=== PATIENT | female | born 1965 | race Caucasian/White ===

== ENCOUNTER 2024-03-24 08:00 | Outpatient (CLI) | payer OTHER, SELFPAY ==
--- NOTE | 2024-03-24 | XRR_ITS ---
PROCEDURE INFORMATION: Exam: XR Right Ankle Exam date and time: 03/24/2024 3:36 PM Age: 58 years old Clinical indication: Pain; Right; Patient HX: Twisted ankle; Additional info: Pain in right lower limb TECHNIQUE: Imaging protocol: Radiologic exam of the right ankle. Views: 3 or more views. COMPARISON: CR XR tibia fibula RT 2V [id number] 03/24/2024 3:35 PM FINDINGS: Bones/joints: There is a slightly displaced oblique fracture involving the distal fibula. Fracture is displaced by 4-5 mm. There is a minimally displaced fracture involving the tip of the medial malleolus. There also appears to be a fracture involving the posterior malleolus of the distal tibia. There is slight anterior subluxation of the distal tibia with respect to the talus. Bony mineralization is normal. Soft tissues: There is circumferential soft tissue swelling. XR/XR ankle RT min 3V* [id number] IMPRESSION: 1. Trimalleolar fracture right ankle. There is slight anterior subluxation of the distal tibia with respect to the talus.
--- NOTE | 2024-03-24 | XRR_ITS ---
PROCEDURE INFORMATION: Exam: XR Right Tibia and Fibula Exam date and time: 03/24/2024 3:35 PM Age: 58 years old Clinical indication: Pain; Lower leg; Right; Additional info: Pain in right lower limb TECHNIQUE: Imaging protocol: Radiologic exam of the right tibia and fibula. Views: 2 views. COMPARISON: No relevant prior studies available. FINDINGS: Bones/joints: There is a trimalleolar fracture involving the right ankle. There is slight anterior subluxation of the distal tibia with respect to the talus. No fractures are otherwise appreciated. Bony mineralization is normal. Soft tissues: There is soft tissue swelling about the ankle. XR/XR tibia fibula RT 2V [id number] IMPRESSION: 1. Trimalleolar fracture right ankle. There is slight anterior subluxation of the distal tibia with respect to the talus.
== END 2024-03-24 08:01 | disposition home or self-care (01) ==
LOC: RADOUTREAD 03-25 07:18
PROVIDERS: Visit Provider Electrodiagnostic Medicine
DX: M79.604 Pain in right leg (principal)

== ENCOUNTER 2024-03-28 07:00 | Day surgery (SDC) | payer OTHER, SELFPAY ==
[2024-03-28] VITALS (14 sets, daily range): BP systolic 108–146; BP diastolic 62–96; PULSE 76–94; RESP 12–24; TEMP 36.1–36.8; O2SAT 92–98
[2024-03-28] MEDS: sodium chloride 0.9% 1,000 ML 30 ML IV (07:27)
[2024-03-28] MEDS: gabapentin 300 mg Capsule PO (07:29)
[2024-03-28] MEDS: CELEcoxib 200 mg Capsule 400 MG PO (07:29)
[2024-03-28] MEDS: scopolamine 1.5 Patch 1 PATCH TRANSDERMA (07:30)
--- NOTE | 2024-03-28 08:01 | P.ANESASSM_ITS ---
Pre-Anesthetic Assessment Height/Weight: Height 1.6 m Weight 86.183 kg Temp Pulse Resp BP Pulse Ox O2 Del Method 97.3 F L 94 18 146/96 95 Room Air 03/28/24 07:16 03/28/24 07:16 03/28/24 07:16 03/28/24 07:16 03/28/24 07:16 03/28/24 07:38 Preop Diagnosis: Right trimalleolar fracture Operation Date: 03/28/24 08:35 Proposed Procedures p ORIF Ankle ORIF Trimalleolar Fracture(Right) - Allan Ventura DPM Familial anesthetic complications: None Was Beta Rusty taken within 24 hours: N/A Was Clonidine taken within 24 hours: N/A Last intake: Intake Last Liquid Date 03/28/24 Last Liquid Time 05:45 Last Solid Date 03/27/24 Last Solid Time 18:30 Social Tobacco and No alcohol Exam alert, oriented x 3, clear to auscultation bilaterally and regular rate & rhythm Airway Mallampati: Class II Dentition: chipped (back molar) Anesthetic Plan ASA status: 1 Anesthesia: General and Regional (specify below) Risk of > 500 ml blood loss (7ml/kg in children): No Medications/Allergies Home Medications Medication Instructions Recorded Confirmed Last Taken Type bupropion HCl 150 mg tablet,12 hr 150 mg PO DAILY 03/26/24 03/27/24 03/27/24 Hi story sustained-release diazepam 5 mg tablet 5 mg PO DAILY PRN Anxiety 03/26/24 03/27/24 03/27/24 History fexofenadine 60 mg-pseudoephedrine 1 tab PO ONCE 03/26/24 03/27/24 03/27/24 History ER 120 mg tablet,ext.release,12 hr (Cat-D 12 Hour) montelukast 10 mg tablet 10 mg PO DAILY 03/26/24 03/27/24 03/26/24 History sertraline 50 mg tablet 50 mg PO DAILY 03/26/24 03/27/24 03/26/24 History triamcinolone acetonide 55 mcg 1 spray intranasal DAILY 03/27/24 03/27/24 03/27/24 History nasal spray aerosol (Nasacort) Allergies Allergy/AdvReac Type Severity Reaction Status Date / Time Penicillins Allergy Intermediate ALGY-Swell Verified 03/26/24 16:01 Lip/Tongue/Throat Current Medications Generic Name Dose Route Start Last Admin Trade Name Freq PRN Reason Stop Dose Admin Sodium Chloride 1,000 mls @ 30 mls/hr 03/28/24 07:15 03/28/24 07:27 Sodium Chloride 0.9% IV 03/29/24 07:14 30 mls/hr .Q24H DEVIN Administration PFSH Anesthesia Social History Smoking and tobacco/nicotine status: current every day tobacco/nicotine user (1/2 pack) Data Anesthesia Cardiac Studies: No Data to Display
--- NOTE | 2024-03-28 08:01 | SUR.PREOP ---
Dr. Donato at bedside. Block performed to RLE.
--- NOTE | 2024-03-28 08:01 | ANES.PROC ---
Anesthesia Procedures Procedure/Date: 03/28/24 Nerve Block ^: Nerve Block 1: Main Anesthesia: general anesthesia Time Out Performed: Yes Consent: requested by attending/covering physician, from patient, from other, risks and benefits reviewed and patient agrees to proceed Nerve block location: popliteal (L) Anesthesia monitors applied: pulse oximetry, EKG, BP cuff and oxygen Nerve block position: supine Anesthetic Used: ropivicaine 0.5% (30 ml) and with decadron (4 mg) Ultrasound used to: recognize landmarks Nerve Stimulator Used?: No Interscalene/Femoral BLK: 4 stimuplex 21 g needle used for position and inplane approach, visualize local anesthetic spread and no vascular puncture identified Injection: neg aspiration of heme Patient Tolerated Procedure: well Complications: none
--- NOTE | 2024-03-28 08:08 | W.PM.OPSUD ---
Surgery/Procedure H&P Update DATE OF PROCEDURE: March 28, 2024 DATE H&P PERFORMED: 03/26/24 H&P UPDATE INFORMATION: I have reviewed H&P completed within last 30 days, I have examined patient prior to procedure, No changes to prior documentation and H&P is in [facility] on date indicated PREOP DIAGNOSIS: Right trimalleolar fracture PLANNED PROCEDURE: Operation Date: 03/28/24 08:35 Proposed Procedures p ORIF Ankle ORIF Trimalleolar Fracture(Right) - Allan Ventura DPM
[2024-03-28] MEDS: BUPivacaine 0.25% INJ 10 mL INJECTION (08:20)
[2024-03-28] MEDS: clindamycin 600 MG/50 ML PREMIX 100 MG IV (08:25)
--- NOTE | 2024-03-28 09:34 | P.OP_ITS ---
Operative Report Date of procedure: March 28, 2024 Pre-op diagnosis: Closed right trimalleolar fracture S82.851A. Post-op diagnosis: Closed right trimalleolar fracture S82.851A Procedure done: Open reduction internal fixation right trimalleolar fracture. CPT code 01184 Implants: [place] anatomic fibular plate and react syndesmotic screw, 3.5 mm plate screws, 3-0 Vicryl, 4-0 Vicryl, skin mika Specimens removed/disposition: No specimens removed Pathology: No pathology specimen Surgeon: Allan Ventura DPM [employer]sembler [employer]dnance: Filippo RACHEL Estimated blood loss: 5 mL 43 minutes IV fluids: See intraoperative documentation Urine output: No urine output Complications: No complications Brief History: 58 year old female patient here for evaluation of her right trimalleolar ankle fracture DOI: 03/24/24 Twisting right ankle while trying to catch herself from falling. Reviewed x-ray taken 03/24/2024 right ankle 3 views demonstrates trimalleolar fracture to the right ankle with anterior displacement of the distal tibia at the tibiotalar joint. Sami Aponte C fracture greater then 2 mm displaced with angulation laterally and shortening approximately 3 mm. Avulsion fracture off the medial malleolus, posterior malleolus fracture involves 20% of the joint surface with 2 mm of displacement dorsally. Patient was examined and evaluated, findings clinically and radiographically were discussed with patient and her at length, she has a unstable subluxed ankle joint with acute trimalleolar fracture. Recommended ORIF as her next best step to restore anatomy, provide internal rigid fixation and allow early range of motion. I reviewed at length with the patient, the risks, potential complications, benefits, alternatives, expectations, and typical outcomes associated with the surgery. The risks and potential complications were explained in detail, including but not limited to infection, wound dehiscence or soft tissue complications, bleeding and hematoma, chronic edema, neuritis or nerve damage producing numbness or chronic pain, CRPS, failure to relieve pain or worsening pain, thick / painful / unsightly scar, limited motion / stiffness, malposition, delayed union, malunion, or nonunion, fracture, reaction to implants, anesthetic complications, venous thromboembolism, and deformity recurrence. I discussed the notion of no regrets with the patient as it pertains to complications and outcomes. The patient seemed to understand the nature of the proposed care and required convalescence. They asked appropriate questions, answered to their satisfaction. They are aware no guarantees can be made as to a satisfactory outcome and they understand there may be other possible unforeseen complications or outcomes not listed here that will be treated accordingly if they arise. There were no written or implied guarantees given to the patient. They gave informed consent to proceed. Procedure: Under mild sedation patient was brought to the operating room and remained on the gurney in supine position. A timeout was performed. Anesthesia was then administered by the anesthesia service. Of note right popliteal block was performed preoperatively per anesthesia service. Well-padded pneumatic tourniq uet was applied to the right high calf. The right lower extremity was then scrubbed, prepped and draped utilizing normal aseptic technique. Right foot and ankle were exanguinated with an Esmarch bandage and tourniquet inflated to 250 mmHg. Attention was directed to the lateral aspect of the right ankle where a linear longitudinal incision was made directly lateral to the lateral malleolus cours ing proximally through skin with a #15 blade with dissection carried down to the layer periosteum of the lateral right fibula utilizing sharp and blunt technique. Care was taken to retract and preserve all neurovascular and tendinous structures. All bleeders were ligated and cauterized as necessary. Fracture was distracted and curettage of hematoma followed by saline flush, this was then reduced and temporarily stabilized with [id number] fracture reduction forceps and fixated utilizing a [place] 28 anatomic fibular plate with 3.5 mm locking screws, 3 screws proximal and 4 screws distal with excellent bony apposition, compression and stability to the anatomically reduced fibula, was reduced in all 3 planes and pulled out the length and the rotated this was confirmed with intraoperative fluoroscopy in AP, oblique and lateral view of the right ankle and noted to be excellent anatomic reduction and fixation of the fibula without violation of the ankle mortise with hardware. Cotton test demonstrated syndesmotic instability with diastases between the fibula and tibia and medial gutter widening necessitating syndesmotic fixation this was accomplished with ankle joint placed in neutral and syndesmotic react screw with excellent reduction of syndesmosis and excellent placement of the syndesmotic screw being proximal and parallel to the ankle mortise. Posterior malleolus fracture was reduced with ligamentotaxis and noted to be congruent. The incision was irrigated with saline solution and closed in a layered fashion with periosteum reapproximated with 3-0 Vicryl, subcutaneous tissue with 4-0 Vicryl and skin with mika. Smooth range of motion appreciated the ankle without crepitus or binding. The incision was dressed with Adaptic, sterile 4 x 4, Kerlix and Harris wrap followed by application of well-padded multilayer compressive posterior splint with stirrup. Tourniquet was deflated and a prompt hyperemic response is noted to the distal digits of the right foot. Patient tolerated the procedure and anesthesia well and was transferred to the PACU with vital signs stable and vascular status intact. Following a period of postoperative monitoring she will be discharged home and was advised to remain strict nonweightbearing to the right lower extremity she is to rest and elevate right foot, was given at home care instructions, scheduled follow-up and myself number to contact with any postoperative questions or concerns. Advised 81 mg aspirin to be taken once daily starting morning after surgery for the next approximately 6 weeks to help potentially reduce the risks of deep vein thrombosis.
--- NOTE | 2024-03-28 09:34 | P.BOP_ITS ---
Date of Procedure: 09/28/23 Surgeon: Allan Ventura DPM Admitting Office Escort(s): Filippo RACHEL Procedure(s) performed: Open reduction internal fixation right trimalleolar fracture Findings of the procedure(s): None Estimated blood loss: 5 mL Specimen(s) removed: No specimens Post-operative diagnosis: Right trimalleolar fracture
--- NOTE | 2024-03-28 13:25 | ANE.PACU2 ---
Inpatient post-anesthesia follow up: Airway intact: Yes Vital signs: Temperature 98.3 F Pulse Rate 86 Respiratory Rate 16 Blood Pressure 127/77 Pulse Oximetry 94 Oxygen Delivery Me thod Room Air Oxygen Flow Rate Fraction of Inspir ed Oxygen Hydration adequate: Yes Nausea and vomiting: No Pain level: 1 Mental status: Baseline
== END 2024-03-28 13:25 | disposition home or self-care (01) ==
PROVIDERS: PCP Registered Nurse; Visit Provider Podiatrist Foot & Ankle Surgery
PROC: (CPT 27822; principal; 2024-03-28 08:25)
DX: S82.851A Displaced trimalleolar fracture of right lower leg, initial encounter for closed fracture (principal); X50.1XXA Overexertion from prolonged static or awkward postures, initial encounter; F17.210 Nicotine dependence, cigarettes, uncomplicated
CPT/HCPCS: 27822; C1713; J1100; J2250; J2371; J2405; J2704; J2795; J3010; J3490; J7030

== ENCOUNTER → 2024-04-17 14:52 | Outpatient (BNVA) | payer OTHER, SELFPAY | PROVIDERS: PCP Registered Nurse; Visit Provider Podiatrist Foot & Ankle Surgery | DX: S82.851A Displaced trimalleolar fracture of right lower leg, initial encounter for closed fracture (principal); Z98.890 Other specified postprocedural states; Z87.81 Personal history of (healed) traumatic fracture; X58.XXXA Exposure to other specified factors, initial encounter | CPT/HCPCS: 73610 ==

== ENCOUNTER → 2024-05-08 14:05 | Outpatient (BNVA) | payer OTHER, SELFPAY | PROVIDERS: PCP Registered Nurse; Visit Provider Podiatrist Foot & Ankle Surgery | DX: Z98.890 Other specified postprocedural states (principal) | CPT/HCPCS: 73610 ==

== ENCOUNTER 2024-05-08 15:22 | Outpatient (CLI) | payer OTHER, SELFPAY | END 2024-05-08 15:23 | disposition home or self-care (01) | LOC: SPT 15:23 | PROVIDERS: PCP Registered Nurse; Visit Provider Podiatrist Foot & Ankle Surgery | DX: Z47.89 Encounter for other orthopedic aftercare (principal); Z87.81 Personal history of (healed) traumatic fracture | CPT/HCPCS: 97760; L4361 ==

== ENCOUNTER → 2024-05-22 13:04 | Outpatient (BNVA) | payer OTHER, SELFPAY | PROVIDERS: PCP Registered Nurse; Visit Provider Podiatrist Foot & Ankle Surgery | DX: Z98.890 Other specified postprocedural states (principal); Z87.81 Personal history of (healed) traumatic fracture | CPT/HCPCS: 73610 ==

== ENCOUNTER → 2024-06-19 13:54 | Outpatient (BNVA) | payer OTHER, SELFPAY | PROVIDERS: PCP Registered Nurse; Visit Provider Podiatrist Foot & Ankle Surgery | DX: Z98.890 Other specified postprocedural states (principal); S82.851D Displaced trimalleolar fracture of right lower leg, subsequent encounter for closed fracture with routine healing; X58.XXXD Exposure to other specified factors, subsequent encounter | CPT/HCPCS: 73610 ==